=== PATIENT | female | born 1975 | race Caucasian/White ===

== ENCOUNTER 2017-10-18 02:48 | Emergency (ER) | payer BC ==
[~2017-10-18] VITALS: Ht 160 cm; Wt 109.8 kg
[2017-10-18 02:50] VITALS: BP 162/92
--- NOTE | 2017-10-18 03:13 | NUR ---
DR. MOREIRA AT BEDSIDE FOR EVAL.
[2017-10-18] MEDS ORDERED: MORPHINE SULFATE INJ 4 MG/ML DISP.SYRIN ONE (03:25)
[2017-10-18] MEDS ORDERED: ONDANSETRON 4 MG TAB.RAPDIS ONE (03:26)
[2017-10-18] MEDS ORDERED: ONDANSETRON HCL/PF 4 MG/2 ML VIAL IM ONE (03:30)
[2017-10-18] MEDS ORDERED: MORPHINE SULFATE INJ 2 MG/ML DISP.SYRIN IM ONE (03:30)
--- NOTE | 2017-10-18 04:14 | NUR ---
Patient discharged to home in stable condition. Written and verbal after care instructions given. Patient verbalizes understanding of instruction and Rx. Pt left via WC vss.
== END 2017-10-18 04:19 | disposition home or self-care (01) ==
LOC: ER 02:50
DX: N20.0 Calculus of kidney (principal); I10 Essential (primary) hypertension
CPT/HCPCS: 96372 ×2; 99284; A4606; J2270; J7030; J7050; Q0162; Z7610